=== PATIENT | female | born 1975 | race Two or more races ===

== ENCOUNTER 2024-08-27 07:35 | Day surgery (SDC) | payer BC, SELFPAY ==
[2024-08-27] VITALS (12 sets, daily range): BP systolic 104–143; BP diastolic 65–96; PULSE 54–69; RESP 10–19; TEMP 36.3–36.5; O2SAT 94–100; BMI 28.8
[2024-08-27] MEDS: DiphenhydrAMINE INJ 50 MG/ML VIAL 25 MG IV (09:19)
[2024-08-27] MEDS: BENZOCAINE 20% (Hurricaine) SPRAY 1 DOSE TOP (09:19)
[2024-08-27] MEDS: ONDANSETRON INJ 2 MG/ML INJ 2 ML 4 MG IV (09:21)
[2024-08-27] MEDS: fentaNYL CIT INJ 50 mCg/ML AMP 2ML (ASD USE ONLY) IV (09:21)
[2024-08-27] MEDS: MIDAZOLAM INJ 1 MG/ML VIAL 2 ML (ASD USE ONLY) 2 MG IV ×2 (09:21→09:37)
[2024-08-27] MEDS: MEPERIDINE INJ 25 MG/ML VIAL (ASD USE ONLY) IV (09:34)
== END 2024-08-27 10:45 | disposition home or self-care (01) ==
PROVIDERS: PCP Internal Medicine; Referring Provider Specialist; Visit Provider Specialist
PROC: 0DBE8ZX Excision of Large Intestine, Via Natural or Artificial Opening Endoscopic, Diagnostic (ICD-10-PCS; CPT 45380; principal; 2024-08-27 08:30)
PROC: (CPT 43239; 2024-08-27 08:30)
DX: Z12.11 Encounter for screening for malignant neoplasm of colon (principal); D12.3 Benign neoplasm of transverse colon; K64.9 Unspecified hemorrhoids; K57.30 Diverticulosis of large intestine without perforation or abscess without bleeding; K21.00 Gastro-esophageal reflux disease with esophagitis, without bleeding; K29.70 Gastritis, unspecified, without bleeding; K22.10 Ulcer of esophagus without bleeding; K31.89 Other diseases of stomach and duodenum; K31.7 Polyp of stomach and duodenum
CPT/HCPCS: 45380; 43239; A4649; J1200; J2175; J2250; J2405; J3010; A9270

== ENCOUNTER → 2025-05-02 | Outpatient (CLI) | payer BC, SELFPAY ==
[2025-05-02 09:05] LABS: Collection Type, Urine Clean Catch
[2025-05-02 09:55] LABS: Basophils # (Auto) 0.0 Thou/mm3 (0.0-0.2); Basophils % (Auto) 1 % (0-2.5); Eosinophils # (Auto) 0.1 Thou/mm3 (0.0-0.5); Eosinophils % (Auto) 3 % (0-10); Hematocrit 41.6 % (36.0-46.0); Hemoglobin 13.6 g/dL (12.0-16.0); Immature Granulocytes Auto 0.01 Thou/mm3 (0.00-0.00); Lymphocytes # (Auto) 1.3 Thou/mm3 (1.0-4.8); Lymphocytes % (Auto) 32 % (10-50); Mean Corpuscular HGB Conc 32.7 g/dl (31.0-37.0); Mean Corpuscular Hemoglobin 27.9 pg (25.0-35.0); Mean Corpuscular Volume 85 fL (80-100); Monocytes # (Auto) 0.3 Thou/mm3 (0.0-0.8); Monocytes % (Auto) 7 % (0-12); Neutrophils # (Auto) 2.3 Thou/mm3 (1.8-7.7); Neutrophils % (Auto) 56 % (37-80); Nucleated Red Blood Cell # 0.00 Thou/mm3 (0.00-0.00); Nucleated Red Blood Cell % 0 /100 WBC (0); Platelet Count 222 Thou/mm3 (140-440); RDW Standard Deviation 42.1 fL (36.4-46.3); Red Blood Count 4.88 Miln/mm3 (4.00-5.20); White Blood Count 4.1 Thou/mm3 (3.6-11.0)
[2025-05-02 09:55] LABS: Bacteria,Urine Rare; Bilirubin,Urine Negative (Negative); Blood,Urine Negative (Negative); Clarity,Urine Clear (Clear/Hazy); Color,Urine Lt-Yellow (Lt Yel-Yel); Glucose, Urine Negative (Negative); Ketones,Urine Negative (Negative); Leukocyte Esterase,Urine Negative (Negative); Nitrite,Urine Negative (Negative); PH,Urine 6.5 (5.0-7.0); Protein,Urine Negative (Neg - Trace); RBC,Urine < 1 /hpf (0-3); Specific Gravity,Urine 1.026 (1.001-1.035); Squamous Epithelial Cell,Urine 6 /hpf (0-5); Urobilinogen,Urine Negative mg/dL (0.0-1.0); WBC,Urine 1 /hpf (0-5)
[2025-05-02 09:58] LABS: Glucose Estimated Average 117 mg/dL (80-131); Hemoglobin A1C 5.7 % Hgb (4.8-6.0)
[2025-05-02 10:11] LABS: Ferritin 19 ng/mL (7.3-270.7); Vitamin B12 530 pg/mL (211-911); Vitamin D 25 Hydroxy Total 38.1 ng/mL (7.3-40.2)
[2025-05-02 10:35] LABS: Alanine Aminotransferase 11 U/L (10-49); Albumin, Serum 4.6 gm/dL (3.5-5.0); Albumin/Globulin Ratio 2.2 (1.2-2.2); Alkaline Phosphatase 74 U/L (46-116); Anion Gap 12 (7-16); Aspartate Amino Transferase 10 U/L (0-34); BUN/Creatinine Ratio 18 Ratio (12-20); Bilirubin,Total 0.4 mg/dL (0.3-1.2); Blood Urea Nitrogen 16 mg/dL (9-23); Calcium 10.4 mg/dL (8.3-10.6); Calcium (Corrected) 10.4 mg/dL (8.5-10.1); Carbon Dioxide 28.4 mMol/L (20.0-31.0); Cardiac Risk Estimate 3.3 RATIO (3.7-5.6); Chloride 105 mMol/L (98-107); Cholesterol 210 mg/dL (132-200); Creatinine (Component) 0.9 mg/dL (0.6-1.3); Globulin 2.1 gm/dL (2.3-3.5); Glucose 98 mg/dL (74-106); HDL Cholesterol 64 mg/dL (40-60); LDL Cholesterol,Calculated 124 mg/dL (0-130); Osmolality,Calculated 289 (275-295); Potassium 4.5 mMol/L (3.4-5.1); Sodium 145 mMol/L (136-145); Thyroid Stimulating Hormone 0.63 uIU/mL (0.55-4.78); Total Protein 6.7 gm/dL (5.7-8.2); Triglycerides 112 mg/dL (30-150); eGFR > 60 See Note
[2025-05-02 10:45] LABS: Uric Acid 4.8 mg/dL (3.1-7.8)
== END | disposition home or self-care (01) ==
PROVIDERS: PCP Internal Medicine; Referring Provider Internal Medicine; Visit Provider Internal Medicine
DX: Z00.00 Encounter for general adult medical examination without abnormal findings (principal); E53.8 Deficiency of other specified B group vitamins; E55.9 Vitamin D deficiency, unspecified
CPT/HCPCS: 36415; 80053; 80061; 81001; 82306; 82607; 82728; 83036; 84443; 84550; 85025

== ENCOUNTER → 2025-05-23 | Outpatient (CLI) | payer BC, SELFPAY ==
--- NOTE | 2025-05-23 13:00 | XR_ITS ---
Examination: Screening digital mammography, bilateral Computer aided detection 3-D breast Tomosynthesis, bilateral Date and time of exam: May 23, 2025, 1302 hours Compared to mammograms dating to November 25, 2014 Indication: Screening Technique: Nonmagnified MLO, CC views of the breasts to been obtained, reconstructed from 3-D Tomosynthesis images. R2 computer aided detection program utilized for evaluation of suspicious masses and/or abnormal calcifications. 3-D Tomosynthesis images obtained. Findings: The breasts are heterogeneously dense, which may obscure small masses 9 mm nodule lobular margins with adjacent breast biopsy marker best depicted upper left breast on the MLO view, likely outer left breast on the CC view Impression: BI-RADS Category 0: Incomplete: Need additional imaging evaluation Recommend follow-up spot tomographic views of nodule upper outer left breast as well as left breast sonography to complete the workup
== END | disposition home or self-care (01) ==
LOC: CDIM 12:51
PROVIDERS: PCP Internal Medicine; Referring Provider Internal Medicine; Visit Provider Internal Medicine
DX: Z12.31 Encounter for screening mammogram for malignant neoplasm of breast (principal); N63.21 Unspecified lump in the left breast, upper outer quadrant; R92.1 Mammographic calcification found on diagnostic imaging of breast
CPT/HCPCS: 77063; 77067

== ENCOUNTER → 2025-05-31 | Outpatient (CLI) | payer BC, SELFPAY ==
--- NOTE | 2025-05-31 16:15 | XR_ITS ---
Examination: Retroperitoneal ultrasound, complete Technique: Multiple high resolution grayscale images of the retroperitoneum obtained, including kidneys and bladder. Exam date and time:May 31, 2025, 1614 hrs. Indications: Diagnosis chronic kidney disease, history only one kidney Findings: No right kidney visualized Left kidney 13.4 cm cortex 2.9 cm 8mm upper pole calculus Mild left hydronephrosis No bladder mass or bladder calculi Bladder prevoid volume 313 cc Impression: Absent right kidney 8mm upper pole left renal calculus Mild left hydronephrosis
== END | disposition home or self-care (01) ==
PROVIDERS: PCP Internal Medicine; Referring Provider Internal Medicine; Visit Provider Internal Medicine
DX: N20.0 Calculus of kidney (principal); N13.30 Unspecified hydronephrosis; Z90.5 Acquired absence of kidney
CPT/HCPCS: 76770

== ENCOUNTER → 2025-06-21 | Outpatient (CLI) | payer BC, SELFPAY ==
--- NOTE | 2025-06-21 11:30 | XR_ITS ---
Examination: Breast ultrasound, unilateral, left complete Date and time of exam: June 21, 2025, 1136 hours INDICATIONS: Mammogram 05/23/2025 9 mm nodule lobular margins adjacent to the breast biopsy marker best depicted on the MLO view Technique: Real-time kevin scale ultrasonographic imaging performed left breast including all 4 quadrants as well as nipple retroareolar and axillary region. Findings: 12:00 nodule circumscribed 9 x 10 mm 12:00 nodule circumscribed 8 x 5 mm 4:00 cyst 6 x 5 mm 9:00 nodule circumscribed 6 x 5 mm IMPRESSION: BI-RADS Category 3: Probably benign findings 1 additional 6-month left breast sonogram follow-up is needed to document stability of multiple nodules described above
== END | disposition home or self-care (01) ==
LOC: CDIM 11:23
PROVIDERS: PCP Internal Medicine; Referring Provider Internal Medicine; Visit Provider Internal Medicine
DX: N63.25 Unspecified lump in the left breast, overlapping quadrants (principal)
CPT/HCPCS: 76641

== ENCOUNTER → 2025-07-15 | Outpatient (CLI) | payer BC, SELFPAY ==
--- NOTE | 2025-07-15 14:19 | XR_ITS ---
Examination: Abdomen AP single view Technique: AP portable supine abdomen, single view Exam date and time: July 15, 2025, 1429 hours INDICATIONS: Left flank pain renal stone 1 week FINDINGS: No renal or ureteral calculi depicted Multiple pelvic phleboliths Nonobstructive bowel gas pattern Mild air and stool throughout the colon Surgical clips in the pelvis and right abdomen IMPRESSION: No renal or ureteral calculi Nonobstructive bowel gas pattern
== END | disposition home or self-care (01) ==
PROVIDERS: PCP Surgery; Referring Provider Surgery; Visit Provider Surgery
DX: N20.0 Calculus of kidney (principal)
CPT/HCPCS: 74018

== ENCOUNTER 2025-08-09 11:25 | Day surgery (SDC) | payer BC, SELFPAY ==
[2025-08-08 12:08] VITALS: BMI 30.9
[2025-08-08 12:49] LABS: Collection Type, Urine Clean Catch; WBC,Urine 0 /hpf (0-5)
[2025-08-08 13:11] LABS: Basophils # (Auto) 0.0 Thou/mm3 (0.0-0.2); Basophils % (Auto) 1 % (0-2.5); Eosinophils # (Auto) 0.1 Thou/mm3 (0.0-0.5); Eosinophils % (Auto) 2 % (0-10); Hematocrit 42.9 % (36.0-46.0); Hemoglobin 14.6 g/dL (12.0-16.0); Immature Granulocytes Auto 0.01 Thou/mm3 (0.00-0.00); Lymphocytes # (Auto) 2.3 Thou/mm3 (1.0-4.8); Lymphocytes % (Auto) 43 % (10-50); Mean Corpuscular HGB Conc 34.0 g/dl (31.0-37.0); Mean Corpuscular Hemoglobin 28.2 pg (25.0-35.0); Mean Corpuscular Volume 83 fL (80-100); Monocytes # (Auto) 0.4 Thou/mm3 (0.0-0.8); Monocytes % (Auto) 7 % (0-12); Neutrophils # (Auto) 2.6 Thou/mm3 (1.8-7.7); Neutrophils % (Auto) 47 % (37-80); Nucleated Red Blood Cell # 0.00 Thou/mm3 (0.00-0.00); Nucleated Red Blood Cell % 0 /100 WBC (0); Platelet Count 249 Thou/mm3 (140-440); RDW Standard Deviation 40.0 fL (36.4-46.3); Red Blood Count 5.18 Miln/mm3 (4.00-5.20); White Blood Count 5.4 Thou/mm3 (3.6-11.0)
[2025-08-08 13:14] LABS: Bilirubin,Urine Negative (Negative); Blood,Urine Negative (Negative); Clarity,Urine Clear (Clear/Hazy); Color,Urine Colorless (Lt Yel-Yel); Glucose, Urine Negative (Negative); Ketones,Urine Negative (Negative); Leukocyte Esterase,Urine Negative (Negative); Nitrite,Urine Negative (Negative); PH,Urine 6.5 (5.0-7.0); Protein,Urine Negative (Neg - Trace); RBC,Urine < 1 /hpf (0-3); Specific Gravity,Urine 1.005 (1.001-1.035); Squamous Epithelial Cell,Urine 1 /hpf (0-5); Urobilinogen,Urine Negative mg/dL (0.0-1.0)
[2025-08-08 13:21] LABS: Anion Gap 8 (7-16); BUN/Creatinine Ratio 16 Ratio (12-20); Blood Urea Nitrogen 13 mg/dL (9-23); Calcium 10.1 mg/dL (8.3-10.6); Carbon Dioxide 28.0 mMol/L (20.0-31.0); Chloride 104 mMol/L (98-107); Creatinine (Component) 0.8 mg/dL (0.6-1.3); Estimated Creatinine Clearance 86.1 mL/min (>60); Glucose 90 mg/dL (74-106); Osmolality,Calculated 279 (275-295); Potassium 4.0 mMol/L (3.4-5.1); Sodium 140 mMol/L (136-145); eGFR > 60 See Note
--- NOTE | 2025-08-08 13:30 | ESHP_ITS ---
RE: EFREN MCMILLAN : 1975 DATE OF ADMISSION: 08/09/2025 HISTORY OF PRESENT ILLNESS: A 50-year-old female with the kidney stones. She has a stone in the left kidney. She has only left kidney. She was born with a solitary left kidney. The stone is located in the left kidney and it is a solitary stone 8 mm in size. Now she is scheduled to have cystoscopy left ureteral stent insertion and ESWL for the left kidney stone. PAST SURGICAL HISTORY: Previous surgery included diagnostic laparoscopy and a tummy tuck surgery. Patient has three children. ALLERGIES: NONE KNOWN. PAST MEDICAL HISTORY: No history of diabetes mellitus, no history of hypertension. The patient takes omeprazole. PHYSICAL EXAMINATION: Clinical examination reveals HEENT: Normal. NECK: Supple. LUNGS: Clear. HEART: Sounds are normal. ABDOMEN: Soft without any organomegaly, no guarding, no rigidity. EXTREMITIES: Normal. IMPRESSION: 1. Left kidney stone 8 mm in size. 2. Patient has a solitary left kidney. PLAN: Patient is scheduled to have cystoscopy, left ureteral stent insertion, and ESWL for the 8 mm left renal stone. Planned procedure risks and complications have been discussed with the patient. Patient has understood them and agreed to proceed. DT: 12:55:57 TT: 13:29:00 Ref: [id number] - TID: [id number]
[2025-08-09] VITALS (7 sets, daily range): BP systolic 111–170; BP diastolic 70–97; PULSE 65–90; RESP 12–20; TEMP 36.1–36.3; O2SAT 95–100; BMI 30.6
--- NOTE | 2025-08-09 06:00 | XR_ITS ---
Examination: Abdomen AP single view Technique: AP portable supine abdomen, single view Exam date and time: August 09, 2025, 1230 hours INDICATIONS: Preop, history kidney stones FINDINGS: Surgical clips in the pelvis and right abdomen No renal calculi Nonobstructive bowel gas pattern IMPRESSION: No renal calculi noted
--- NOTE | 2025-08-09 14:01 | XR_ITS ---
Examination: CT abdomen and pelvis without contrast. Coronal 3-D reconstructions. Sagittal 2-D reconstructions. Date and time of exam: August 09, 2025, 1544 hours INDICATIONS: History kidney stones, postop stent placement and lithotripsy today CTDI: vol (mGy): 9.03 DLP: (mGycm): 457 Technique: Axial images of the abdomen have been obtained, 3 mm slice thickness Intravenous contrast material has not been administered. Low dose protocols were performed. One or more of the following dose reduction techniques were used; automated exposure control, adjustment of the mA and/or KV according to patient size, use of iterative reconstruction technique. Findings: Retrocardiac gastric hernia No focal liver lesion Borderline splenomegaly No pancreatic or adrenal mass Air in the left renal collecting system Left ureteral stent satisfactory position, no hydronephrosis Absent right kidney No pericecal inflammatory change Retroverted uterus Contracted urinary bladder IMPRESSION: Left ureteral stent satisfactory position with no hydronephrosis
--- NOTE | 2025-08-09 14:20 | SUR.PHASEI ---
1422 patient arrived to recovery, resting comfortably in [facility], able to arouse with verbal prompting, breathing unlabored, vital signs stable, denies pain and nausea, report received from Caden MOODY and Jose David RODRIGUEZ
--- NOTE | 2025-08-09 15:31 | SUR.PHASEII ---
1531 patient meets discharge criteria from recovery, awake and alert, breathing unlabored, vital signs stable, denies pain and nausea, urinated in restroom prior to discharge, no stones noted, assisted with dressing into her clothing by her partner, discharge instructions given to patient and patients partner, partner signed discharge instructions. Patient given all her belongings prior to discharge, transported via wheelchair and at CT to compete procedure per MD order and patient to leave from CT with CT staff.
--- NOTE | 2025-08-09 20:45 | ESOP_ITS ---
RE: EFREN MCMILLAN : 1975 DATE OF OPERATION: 08/09/2025 PREOPERATIVE DIAGNOSES: Left renal stone, 8 mm in size, mid to upper pole; solitary left kidney; congenitally absent right kidney. POSTOPERATIVE DIAGNOSES: Left renal stone, 8 mm in size, mid to upper pole; solitary left kidney; congenitally absent right kidney. PROCEDURES PERFORMED: 1. Cystoscopy. 2. Left ureteral stent insertion, 6-Cambodian x 26 cm. 3. Left ESWL for the left renal stone. ANESTHESIA: General. INDICATION: Patient is a 50-year-old female with solitary left kidney. She has a congenitally absent right kidney. She has a left renal stone, 8 mm in size. She is now scheduled to have cystoscopy, left ureteral stent insertion, and ESWL for the left renal stone. Planned procedure, risks, and complications have been discussed with the patient. Patient has understood them and agreed to proceed. DESCRIPTION OF PROCEDURE: After the patient was brought to the operating table, she was placed on a table for fluoroscopy. Fluoroscopy of the abdomen was done, which revealed an 8 mm stone in the upper part of the kidney on the left side. She was now anesthetized and was then placed in dorsal lithotomy position. Parts were prepped and draped in the usual fashion. Cystoscopy was then carried out which revealed adequate urethral meatus, normal-appearing urethra. There are no intravesical stones or tumors. Left ureteral orifice was visualized and is normal. The right ureteral orifice is absent. The right side of trigone is not developed and there is no right ureteral orifice. So, patient has a congenital absence of the right kidney. The left ureteral orifice was catheterized with an open-tip ureteral catheter. The catheter was advanced up to the left kidney. A guide wire was placed inside the ureteral catheter all the way up to the kidney. Open-tip ureteral catheter was then removed. A 6-Cambodian x 26 cm double-J ureteral stent was inserted over the guide wire under C-arm fluoroscopy control and was placed so as the proximal loop of the stent is lying in the left kidney and the distal loop is in the bladder. Patient was then positioned on Dornier Delta 3 lithotripsy machine and ESWL for the left renal stone 8 mm in size was carried out. 2500 shocks were given to power level 7. Patient tolerated the entire procedure well and left the room in good condition. DT: 13:47:12 TT: 20:44:00 Ref: [id number] - TID: [id number]
== END 2025-08-09 15:31 | disposition home or self-care (01) ==
PROVIDERS: PCP Internal Medicine; Referring Provider Surgery; Visit Provider Surgery
PROC: (CPT 50590; principal; 2025-08-09 13:15)
PROC: (CPT 52282; 2025-08-09 13:15)
DX: N20.0 Calculus of kidney (principal); Q60.0 Renal agenesis, unilateral; Z01.810 Encounter for preprocedural cardiovascular examination
CPT/HCPCS: 50590; 52332; 36415; 74018; 74176; 80048; 81001; 85025; 87086; 87186; 93005; A4217; A4649; C1876; J0131; J0694; J1100; J2250; J2405; J2704; J3010